=== PATIENT | male | born 1960 | race Caucasian/White ===

== ENCOUNTER 2017-02-09 09:31 | Day surgery (SDC) | payer OTHER ==
[2017-02-09] MEDS ORDERED: LIDOCAINE 1% 300 MG/30 ML SDV ONE (10:07)
[2017-02-09] MEDS ORDERED: LIDOCAINE 1% 300 MG/30 ML SDV IF ONE (10:30)
--- NOTE | 2017-02-09 10:43 | PDHPUP ---
History & Physical Update H&P update statement: This history and physical update is based on an assessment of the patient which was completed after admission or registration (within 24 hours), but prior to the surgery/procedure. H&P update: H&P reviewed & patient examined, no change in patient's condition since H&P completed
--- NOTE | 2017-02-09 11:46 | CPIP ---
[f rep st] INVASIVE CARDIAC PROCEDURE DATE OF PROCEDURE: 02/09/2017 INDICATIONS: The patient is 56 years old. He has a history of a previous stroke which, at this poin t, is cryptogenic in nature. He is referred for implantation of a LINQ to evaluate for episodes of a trial fibrillation. PROCEDURE: Implantation of a [employer] LINQ. TECHNIQUE: Following informed consent, the patient was brought to the [facility] in a fasting state. The [facility] chest was prepped and draped in the usual sterile fashion. The 4th intercostal space was identif ied and infiltrated with 1% lidocaine. A #15 blade was used to make a 1 cm incision. The LINQ was then "injected" underneath the skin. The incision was then closed with two lolyd. COMPLICATIONS: None. DISPOSITION: The patient will be recovered in the [facility] and discharged home later today. /[id number]/MODL
== END 2017-02-09 11:06 | disposition home or self-care (01) ==
LOC: FCATH 09:31
PROVIDERS: ATTEND Internal Medicine Cardiovascular Disease
PROC: 0JH632Z Insertion of Monitoring Device into Chest Subcutaneous Tissue and Fascia, Percutaneous Approach (ICD-10-PCS; principal; 2017-02-09)
DX: Z13.6 Encounter for screening for cardiovascular disorders (principal); Z86.73 Personal history of transient ischemic attack (TIA), and cerebral infarction without residual deficits
CPT/HCPCS: C1764

== ENCOUNTER → 2018-07-26 | Outpatient (CLI) | payer OTHER | LOC: FIMAGING 08:06 | PROVIDERS: ATTEND Family Medicine | DX: S86.811A Strain of other muscle(s) and tendon(s) at lower leg level, right leg, initial encounter (principal); I82.811 Embolism and thrombosis of superficial veins of right lower extremity ==